=== PATIENT | female | born 1935 | race Caucasian/White ===

== ENCOUNTER 2017-03-29 11:08 | Emergency (ER) | payer MEDICARE, OTHER ==
[~2017-03-29] VITALS: Ht 170.2 cm; Wt 73.0 kg
[~2017-03-29 11:08] MED LIST: BIOT10004 PO; CALTCHW4 PO
[2017-03-29 11:14] VITALS: BP 168/76; PULSE 86; RESP 20; TEMP 97.7; O2SAT 96
[2017-03-29 11:26] VITALS: BP 153/74; PULSE 83; RESP 16; O2SAT 96
[2017-03-29] MEDS ORDERED: ACYC800T PO (11:51)
[2017-03-29] MEDS ORDERED: PERC5TAB12 PO (11:51)
--- NOTE | 2017-03-29 12:00 | PD ---
HPI Chief Complaint: Headache Time Seen by Provider: 11:22 Travel History International Travel<30 days: No Contact w/Intl Traveler<30days: No Traveled to known affect area: No History of Present Illness HPI This patient complains of right eye pain and irritation. She also has a rash on her upper forehead. She does not have any injury. Duration 3 days. Severity is moderate. No alleviating factors. Normal vision. Does not work contact lenses. She occasionally gets headache but nothing sustained. PFSH Past Medical History Arthritis: Yes (LEFT HAND/WRIST/KNEES) Asthma: No Autoimmune Disease: No Blood Disorders: Yes (ITP) Anxiety: No Depression: No Heart Rhythm Problems: No Cancer: Yes (ITP, leukemia) Cardiovascular Problems: No High Cholesterol: No Chemotherapy: Yes (FINISHED 2 YRS AGO) Chest Pain: No Congestive Heart Failure: No COPD: No Cerebrovascular Accident: No Diabetes: No Diminished Hearing: No Endocrine: No Gastrointestinal Disorders: No GERD: No Glaucoma: No Genitourinary: No Headaches: No Hepatitis: No Hiatal Hernia: No Heparin Induced Thrombocytopen: No Hypertension: No Immune Disorder: Yes (I.T.P) Kidney Stones: No Medical other: No Musculoskeletal: Yes Neurologic: Yes Psychiatric: No Reproductive: No Respiratory: No Migraines: No Radiation Therapy: No Renal Failure: No Seizures: No Sickle Cell Disease: No Sleep Apnea: No Thyroid Disease: No Ulcer: No Tetanus Vaccination: Unknown ?: Not Menopausal: Yes Past Surgical History Abdominal Surgery: Yes (SPLENECTOMY) AICD: No Arteriovenous Shunt: No Body Medical Devices: right browning cath Cardiac Surgery: No Ear Surgery: No Endocrine Surgery: No Eye Surgery: Yes (BOTH EYE CATARACT) Genitourinary Surgery: No Gynecologic Surgery: No Insulin Pump: No Joint Replacement: No Neurologic Surgery: No Oral Surgery: No Pacemaker: No Thoracic Surgery: No Other Surgery: Yes Social History Alcohol Use: No Tobacco Use: No Substance Use: No Allergies-Medications (Allergen,Severity, Reaction): Coded Allergies: No Known Allergies (Verified , 03/29/17) Reported Meds & Prescriptions Reported Meds & Active Scripts Active Percocet (Oxycodone-Acetaminophen) 5-325 mg Tab 1 Tab PO Q6H PRN Acyclovir 800 Mg Tab 800 Mg PO TID Review of Systems General / Constitutional: No: Fever HENT: Positive: Headaches Cardiovascular: No: Chest Pain or Discomfort Respiratory: No: Shortness of Breath Physical Exam Narrative NEUROLOGICAL: Awake and alert. Pupils are equal round and reactive. Motor and sensory grossly within normal limits. Five out of 5 muscle strength in all muscle groups. Normal speech. NECK: Symmetrical appearance, midline trachea. No mass or crepitus. Thyroid without enlargement, tenderness, or mass. SKIN: Focused skin assessment reveals a vesicular rash near the top of the forehead but only on the right side and does not cross the midline. Skin is warm and dry. Palpation shows no induration or nodules. Left sclerae clear Right sclera is clear I did a fluorescein exam of the right side and I do not see evidence of abrasion or corneal uptake or ulcer or foreign body There is certainly no dendritic pattern Data Data Last Documented VS Vital Signs Date Time Temp Pulse Resp B/P Pulse Ox O2 Delivery O2 Flow Rate FiO2 03/29/17 11:26 83 16 153/74 96 Room Air 03/29/17 11:14 97.7 MDM Medical Decision Making Medical Screen Exam Complete: Yes Emergency Medical Condition: Yes Medical Record Reviewed: Yes Differential Diagnosis Corneal abrasion, shingles, foreign body in the eye Narrative Course I have reviewed the patient's electronic medical record. Patient is neurologically intact and I don't feel she needs brain imaging Her primary concern is her eye irritation and her headache is intermittent Fluorescein shows no uptake and certainly no dendritic pattern to suggest shingles is involved in the eye No involvement of the face In fact the rash is only on a tiny little patch at the top of her forehead and I 'm not certain that is shingles but I'm going to give her acyclovir to cover the possibility I wrote her something for pain to use if needed She should follow-up with primary care and ophthalmology and return if she worsens Diagnosis Primary Impression: Irritation of right eye Additional Impression: Shingles outbreak Qualified Code: B02.9 - Herpes zoster without complication Additional Instructions: Follow-up with primary care and ophthalmology Return if you worsen The patient was warned about potential sedation for the medications they will receive on prescription. Med/Other Pt SpecificInfo: Prescription(s) given Scripts Oxycodone-Acetaminophen (Percocet)5-325 mg Tab1 Tab PO Q6H PRN (PAIN) #15 TAB Ref 0 Prov:Pierce Ding MD 03/29/17 Acyclovir 800 Mg [id number] Mg PO TID #21 TAB Ref 0 Prov:Pierce Ding MD 03/29/17 Disposition: 01 DISCHARGE HOME Condition: Stable Pierce Ding MD Mar 29, 2017 12:00
[2017-03-29] MEDS ORDERED: TURM500C3 PO (19:58)
[2017-03-29] MEDS ORDERED: BIOTCAP PO (19:58)
[2017-03-29] MEDS ORDERED: CALC1TAB87 PO (19:58)
[2017-03-29] MEDS ORDERED: ONCETAB7 PO (19:58)
[2017-03-29] MEDS ORDERED: ZOFR4TAB3 SL (23:08)
[2017-03-29] MEDS ORDERED: CIPR0.3S2 RIGHT EYE (23:27)
== END 2017-03-29 12:16 | disposition home or self-care (01) ==
LOC: PHED 11:08
DX: H57.8 Other specified disorders of eye and adnexa (principal); B02.9 Zoster without complications; Z87.39 Personal history of other diseases of the musculoskeletal system and connective tissue; Z86.2 Personal history of diseases of the blood and blood-forming organs and certain disorders involving the immune mechanism; Z86.69 Personal history of other diseases of the nervous system and sense organs
CPT/HCPCS: 99284

== ENCOUNTER 2017-03-29 18:21 | Emergency (ER) | payer MEDICARE, OTHER ==
[~2017-03-29 18:21] MED LIST changes: +ACYC800T PO; +PERC5TAB12 PO
[2017-03-29 19:50] VITALS: BP 156/68; PULSE 75; RESP 16; TEMP 98.3; O2SAT 97
[2017-03-29] MEDS ORDERED: BIOTCAP PO (19:58)
[2017-03-29] MEDS ORDERED: ONCETAB7 PO (19:58)
[2017-03-29] MEDS ORDERED: CALC1TAB87 PO (19:58)
[2017-03-29] MEDS ORDERED: TURM500C3 PO (19:58)
[2017-03-29] MEDS ORDERED: SODIUM CHLORIDE 0.9% FLUSH 10 ML FLUSH IVF PRN (20:00)
[2017-03-29] MEDS ORDERED: MORPHINE SULFATE 4 MG/ML INJ IV PUSH ONE (20:00)
[2017-03-29] MEDS ORDERED: ONDANSETRON HCL 4 MG/2 ML VIAL IVP ONE (20:00)
--- NOTE | 2017-03-29 20:19 | PD ---
HPI Chief Complaint: General Weakness Time Seen by Provider: 19:55 Travel History International Travel<30 days: No Contact w/Intl Traveler<30days: No Traveled to known affect area: No History of Present Illness HPI 82-year-old female presents to the emergency department by private transportation for complaint of persistent right eye pain for head pain headache generalized weakness and possible chills as felt tremulous earlier with diagnosis of shingles from earlier today at [facility]. Patient states that she did take prescription pain medicine, Percocet, without relief. Patient denies fever. Patient does not report sudden onset thunderclap or worst headache ever. Patient rates headache pain 6/10 in intensity. Patient rates pain 6/10 intensity. Patient also complains of some forehead and facial pain where she has a erythematous vesicular rash sparing the nose. Patient was seen yesterday in the emergency department and fluorescein staining revealed no evidence of dendritic changes or nail involvement. Patient has history of refractory ITP, acute myelogenous leukemia with complex cytogenetics as well as , LGL leukemia with neutropenia. Patient has completed all chemotherapy as of 2014. Patient is followed every 3 months by her oncologist Dr. Woodruff and her primary care provider Dr. Noel. [facility] Past Medical History Narrative Medical Refractory ITP, acute myelogenous leukemia with complex cytogenetics as well as , LGL leukemia with neutropenia. Patient has completed all chemotherapy as of 2014PE 2012-no anticoagulation due to thrombocytopenia splenectomy Browning catheter bilateral cataract surgery Arthritis: Yes (LEFT HAND/WRIST/KNEES) Asthma: No Autoimmune Disease: No Blood Disorders: Yes (ITP) Anxiety: No Depression: No Heart Rhythm Problems: No Cancer: Yes (ITP, leukemia) Cardiovascular Problems: No High Cholesterol: No Chemotherapy: Yes (FINISHED 2 YRS AGO) Chest Pain: No Congestive Heart Failure: No COPD: No Cerebrovascular Accident: No Diabetes: No Diminished Hearing: No Endocrine: No Gastrointestinal Disorders: No GERD: No Glaucoma: No Genitourinary: No Headaches: No Hepatitis: No Hiatal Hernia: No Heparin Induced Thrombocytopen: No Hypertension: No Immune Disorder: Yes (I.T.P) Kidney Stones: No Musculoskeletal: Yes Neurologic: Yes Psychiatric: No Reproductive: No Respiratory: No Migraines: No Radiation Therapy: No Renal Failure: No Seizures: No Sickle Cell Disease: No Sleep Apnea: No Thyroid Disease: No Ulcer: No Influenza Vaccination: Yes Menopausal: Yes : 0 Past Surgical History Abdominal Surgery: Yes (SPLENECTOMY) AICD: No Arteriovenous Shunt: No Body Medical Devices: right browning cath Cardiac Surgery: No Ear Surgery: No Endocrine Surgery: No Eye Surgery: Yes (BOTH EYE CATARACT) Genitourinary Surgery: No Gynecologic Surgery: No Insulin Pump: No Joint Replacement: No Neurologic Surgery: No Oral Surgery: No Pacemaker: No Thoracic Surgery: No Other Surgery: Yes (basal cell removed from nose) Social History Alcohol Use: No Tobacco Use: No Substance Use: No Allergies-Medications (Allergen,Severity, Reaction): Coded Allergies: No Known Allergies (Verified , 03/29/17) Reported Meds & Prescriptions Reported Meds & Active Scripts Active Ciprofloxacin Opth Drops (Ciprofloxacin HCl) 0.3% Soln 2 Drop RIGHT EYE Q4H while awake x 5 days. Zofran Odt (Ondansetron Odt) 4 Mg Tab 4 Mg SL Q6HR PRN Percocet (Oxycodone-Acetaminophen) 5-325 mg Tab 1 Tab PO Q6H PRN Acyclovir 800 Mg Tab 800 Mg PO TID Reported Turmeric (Turmeric (Curcuma Longa)) 500 Mg Cap 1 Cap PO DAILY Once Daily (Multivitamin) 1 Each Tablet 1 Tab PO DAILY Calcium 600 with Vitamin D (Calcium Carbonate-Cholecalciferol) 600-400 mg-Unit Tab 1 Tab PO BID Biotin 5 Mg Cap 5 Mg PO DAILY Review of Systems Except as stated in HPI: all other systems reviewed are Neg General / Constitutional: Positive: Chills, No: Fever Eyes: Positive: Pain, No: Diploplia, Blurred Vision, Photophobia, Drainage, Visual changes HENT: Positive: Headaches, No: Congestion Cardiovascular: No: Chest Pain or Discomfort Respiratory: No: Shortness of Breath Gastrointestinal: Positive: Nausea, No: Vomiting, Abdominal Pain Genitourinary: No: Dysuria, Flank Pain Musculoskeletal: No: Myalgias, Arthralgias Skin: Positive Rash (right foreheadright upper eyelid) Neurologic: Positive: Weakness, Headache, No: Dizziness, Syncope, Focal Abnormalities, Coordination Problem, Change in Mentation Psychiatric: No: Anxiety Endocrine: No: Heat Intolerance Hematologic/Lymphatic: No: Easy Bruising Physical Exam Narrative GENERAL: Well-developed well-nourished elderly female in no acute distress no respiratory distress. Triage vital signs within stable rangeT: 90.3F, HR: 75, RR: 16 nonlabored, BP: 156/68; O2sat RA: 97% SKIN: Warm and dry. Right forehead extending to the right upper eyelid sparing the nose erythematous based vesicular rash. HEAD: Atraumatic. Normocephalic. EYES: Pupils equal and round. No scleral icterus. Mild injection, no drainage. Extraocular muscles intact. Fluorescein stain: positive uptake at the 9 o' clock position with mild dendritic changes noted; Visual acuities right eye 20/ 20, left eye 20/20, both eyes 20/20 without corrective lenses (wears bifocal eyeglasses) ENT: No nasal bleeding or discharge. Mucous membranes pink and moist. NECK: Trachea midline. No JVD. CARDIOVASCULAR: Regular rate and rhythm. RESPIRATORY: No accessory muscle use. Clear to auscultation. Breath sounds equal bilaterally. GASTROINTESTINAL: Abdomen soft, non-tender, nondistended. Hepatic and splenic margins not palpable. MUSCULOSKELETAL: Extremities without clubbing, cyanosis, or edema. No obvious deformities. NEUROLOGICAL: Awake and alert. No obvious cranial nerve deficits. Motor grossly within normal limits. Five out of 5 muscle strength in the arms and legs. Normal speech. PSYCHIATRIC: Appropriate mood and affect; insight and judgment normal. Data Data Last Documented VS Vital Signs Date Time Temp Pulse Resp B/P Pulse Ox O2 Delivery O2 Flow Rate FiO2 03/29/17 19:50 98.3 75 16 156/68 97 Room Air Orders Electrocardiogram (03/29/17 19:55) Basic Metabolic Panel (Bmp) (03/29/17 19:55) Complete Blood Count With Diff (03/29/17 19:55) Magnesium (Mg) (03/29/17 19:55) Troponin I (03/29/17 19:55) Act Partial Throm Time (Ptt) (03/29/17 19:55) Prothrombin Time / Inr (Pt) (03/29/17 19:55) Urinalysis - C+S If Indicated (03/29/17 19:55) Ct Brain W/O Iv Contrast(Rout) (03/29/17 19:55) Blood Glucose (03/29/17 19:55) Ecg Monitoring (03/29/17 19:55) Iv Access Insert/Monitor (03/29/17 19:55) Oximetry (03/29/17 19:55) Ondansetron Inj (Zofran Inj) (03/29/17 20:00) Sodium Chloride 0.9% Flush (Ns Flush) (03/29/17 20:00) Morphine Inj (Morphine Inj) (03/29/17 20:00) Blood Culture (03/29/17 20:45) Lactic Acid (03/29/17 20:45) Acyclovir (Zovirax) (03/29/17 22:30) Labs Laboratory Tests Test 03/29/17 03/29/17 03/29/17 20:05 20:08 21:20 Urine Color YELLOW Urine Turbidity CLEAR Urine pH 7.0 Urine Specific [place] 1.024 Urine Protein TRACE mg/dL Urine Glucose (UA) NEG mg/dL Urine Ketones 40 mg/dL Urine Occult Blood NEG Urine Nitrite NEG Urine Bilirubin NEG Urine Urobilinogen LESS THAN 2.0 MG/DL Urine Leukocyte Esterase NEG Urine WBC LESS THAN 1 /hpf Urine Hyaline Casts 6 /lpf Urine Mucus FEW /lpf Microscopic Urinalysis Comment CULT NOT INDICATED White Blood Count 7.0 TH/MM3 Red Blood Count 4.07 MIL/MM3 Hemoglobin 13.5 GM/DL Hematocrit 39.5 % Mean Corpuscular Volume 97.2 FL Mean Corpuscular Hemoglobin 33.3 PG Mean Corpuscular Hemoglobin 34.2 % Concent Red Cell Distribution Width 13.3 % Platelet Count 195 TH/MM3 Mean Platelet Volume 8.6 FL Neutrophils (%) (Auto) 51.5 % Lymphocytes (%) (Auto) 39.4 % Monocytes (%) (Auto) 8.4 % Eosinophils (%) (Auto) 0.1 % Basophils (%) (Auto) 0.6 % Neutrophils # (Auto) 3.6 TH/MM3 Lymphocytes # (Auto) 2.7 TH/MM3 Monocytes # (Auto) 0.6 TH/MM3 Eosinophils # (Auto) 0.0 TH/MM3 Basophils # (Auto) 0.0 TH/MM3 CBC Comment DIFF FINAL Differential Comment Prothrombin Time 10.8 SEC Prothromb Time International 1.0 RATIO Ratio Activated Partial 24.7 SEC Thromboplast Time Sodium Level 137 MEQ/L Potassium Level 3.9 MEQ/L Chloride Level 102 MEQ/L Carbon Dioxide Level 24.7 MEQ/L Anion Gap 10 MEQ/L Blood Urea Nitrogen 14 MG/DL Creatinine 0.86 MG/DL Estimat Glomerular Filtration 63 ML/MIN Rate Random Glucose 128 MG/DL Calcium Level 9.0 MG/DL Magnesium Level 2.0 MG/DL Troponin I LESS THAN 0.02 NG/ML Lactic Acid Level 1.1 mmol/L MDM Medical Decision Making Medical Screen Exam Complete: Yes Emergency Medical Condition: Yes Medical Record Reviewed: Yes Interpretation(s) EKG: Normal sinus rhythm rate [address] elevation injury pattern or ectopy Lactic acid: 1.1, not elevated Troponin I: Less than 0.02, not elevated Last Impressions Head CT 03/29/171954 Signed Impressions: Service Date/Time: Wednesday, March 29, 2017 20:12 - CONCLUSION: 1. No acute findings. 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 Ryan Alanis MD CBC & BMP Diagram 03/29/17 20:08 Vital Signs Date Time Temp Pulse Resp B/P Pulse Ox O2 Delivery O2 Flow Rate FiO2 03/29/17 19:50 98.3 75 16 156/68 97 Room Air Differential Diagnosis Herpes zoster ophthalmicus/keratitis, cephalgia, sepsis, pancytopenia Narrative Course Visual acuities performed right eye 20/20 left eye 20/20 both eyes 20/20 (w/o bifocals) Primary care provider Dr. Noel, oncologist Dr. Viera, cognos bi administrator Dr. Prado At 8:44 PM patient now relates that her tremulousness earlier was actually a shaking chill therefore will add lactic acid and blood cultures to current lab values. 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 Prado regarding close follow-up. Patient not voicing any complaint of eye irritation at this time. Patient is aware some mild fluorescein was noted on exam concerning for a involvement of the herpes virus. Patient with family at bedside is aware of normal range lab values imaging studies and EKG; patient is asymptomatic at this time in the emergency department; patient also aware that I have discussed her eye concerns with her cognos bi administrator Dr. Prado's partner who recommends she start antibiotic eyedrop coverage as well as continue her antiviral medications and as needed pain medicine and is to call the office on Saturday morning if she notes any vision change otherwise will be seen in the office on Saturday by Dr. Prado. Physician Communication Physician Communication call placed to Dr Prado ---discussed with covering MD Dr Corona --rec coverage with cipro eye drops and to call office communication manager over the weekend if any change in vision Diagnosis Primary Impression: Zoster keratitis Referrals: Castro Prado MD 2 days Plant Floor [employer]ation Manager 2 days SATURDAY Patient Instructions: Narcotic given in the ED, General Instructions Additional Instructions: Continue current medications as presently prescribed Follow-up with Dr. Prado on Saturday call office in a.m. to schedule follow-up appointment; call partner, Dr Corona, communication manager # [phone] if any vision changes to be seen in the office on Saturday Return to the emergency department for any concerns or change in conditions or intolerance of medication Monitor temperature every 4 hours and take as tolerated acetaminophen/Tylenol for fever 100.4F or greater May take Zofran as prescribed as needed for nausea and/or vomiting Use prescription eyedrops Cipro as prescribed until evaluated by ophthalmology. Med/Other Pt SpecificInfo: Prescription(s) given Scripts Ciprofloxacin Opth Drops 0.3% Soln2 Drop RIGHT EYE Q4H #1 BOTTLE Ref 0 while awake x 5 days. Prov:Sandra Leyva MD 03/29/17 Ondansetron Odt (Zofran Odt)4 Mg Tab4 Mg SL Q6HR PRN (Nausea/Vomiting) #10 TAB Ref 0 Prov:Sandra Leyva MD 03/29/17 Disposition: 01 DISCHARGE HOME Condition: Stable Sandra Leyva MD Mar 29, 2017 20:19
[2017-03-29 20:21] LABS: AUTOMATED NEUTROPHIL # 3.6 TH/MM3 (1.8-7.7); BASOPHIL % 0.6 % (0.0-2.0); EOSINOPHIL % 0.1 % (0.0-4.0); HEMATOCRIT 39.5 % (35.0-46.0); HEMO FLAGS DIFF FINAL; LYMPH % 39.4 % (9.0-44.0); LYMPHOCYTE # 2.7 TH/MM3 (1.0-4.8); MEAN CELL VOLUME 97.2 FL (80.0-100.0); MEAN CORPUSCULAR HEMOGLOBIN 33.3 PG (27.0-34.0); MEAN CORPUSCULAR HGB CONC 34.2 % (32.0-36.0); MONO % 8.4 % (0.0-8.0); NEUT % 51.5 % (16.0-70.0); PLATELET COUNT 195 TH/MM3 (150-450); RED BLOOD COUNT 4.07 MIL/MM3 (4.00-5.30); RED CELL DISTRIBUTION WIDTH 13.3 % (11.6-17.2)
--- NOTE | 2017-03-29 20:23 | RADRPT ---
EXAM DATE/TIME: 03/29/2017 20:12 [facility] COMPARISON: No previous studies available for comparison. INDICATIONS : Headache, shaky, pain behind eyes. RADIATION DOSE: 30.65 CTDIvol (mGy) MEDICAL HISTORY : SURGICAL HISTORY : Leukemia, ITP ENCOUNTER: Initial ACUITY: 1 day PAIN SCALE: 7/10 LOCATION: Bilateral cranial TECHNIQUE: Multiple contiguous axial images were obtained of the head. Using automated exposure control and adj ustment of the mA and/or kV according to patient size, radiation dose was kept as low as reasonably a chievable to obtain optimal diagnostic quality images. DICOM format image data is available electro nically for review and comparison. FINDINGS: CEREBRUM: The ventricles are normal for age. No evidence of midline shift, mass lesion, hemorrhage or acute in farction. Remote lacunar infarct right basal ganglia unchanged from 2013. No extra-axial fluid colle ctions are seen. POSTERIOR FOSSA: The cerebellum and brainstem are intact. The 4th ventricle is midline. The cerebellopontine angle i s unremarkable. EXTRACRANIAL: The visualized portion of the orbits is intact. SKULL: The calvaria is intact. No evidence of skull fracture. CONCLUSION: 1. No acute findings. 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 Ryan Alanis MD on March 29, 2017 at 20:20 Board Certified Radiologist. This report was verified electronically.
[2017-03-29 20:44] LABS: ANION GAP 10 MEQ/L (5-15); BICARBONATE 24.7 MEQ/L (21.0-32.0); BLOOD UREA NITROGEN 14 MG/DL (7-18); CHLORIDE 102 MEQ/L (98-107); GLOMERULAR FILTRATION RATE 63 ML/MIN (>89); POTASSIUM 3.9 MEQ/L (3.5-5.1); SODIUM (NA) 137 MEQ/L (136-145)
[2017-03-29 20:57] LABS: APTT (PATIENT) 24.7 SEC (24.3-30.1); PROTHROMBIN TIME - PATIENT 10.8 SEC (9.8-11.6)
[2017-03-29 21:39] LABS: BLOOD, URINE NEG (NEG); COMMENT (UR) CULT NOT INDICATED; CULTURE IF INDICATED CULT NOT INDICATED; GLUCOSE,URINE NEG (NEG); HYALINE CAST, URINE 6 /lpf (RARE); KETONE, URINE 40 mg/dL (NEG); MUCUS URINE FEW /lpf (OCC); NITRITE,URINE NEG (NEG); URINE COLOR YELLOW (YELLW/STRAW)
[2017-03-29] MEDS ORDERED: ACYCLOVIR 800 MG TAB PO ONE (22:30)
[2017-03-29] MEDS ORDERED: ZOFR4TAB3 SL (23:08)
[2017-03-29] MEDS ORDERED: CIPR0.3S2 RIGHT EYE (23:27)
--- NOTE | 2017-03-30 19:30 | EKG ---
Date Performed: 03/29/2017 Time Performed: 20:22:37 PTAGE: 82 years EKG: Sinus rhythm NORMAL ECG Compared to PREVIOUS TRACING PVCs are no longer seen. PREVIOUS TRACIN01/21/2013 17.53 DOCTOR: Phoenix Rosario Interpretating Date/Time 03/30/2017 19:28:46
== END 2017-03-30 00:34 | disposition home or self-care (01) ==
LOC: NEPC 18:21
DX: B02.33 Zoster keratitis (principal); R51 Headache; R53.1 Weakness; R21 Rash and other nonspecific skin eruption; Z79.899 Other long term (current) drug therapy; Z86.2 Personal history of diseases of the blood and blood-forming organs and certain disorders involving the immune mechanism; Z85.6 Personal history of leukemia; Z87.39 Personal history of other diseases of the musculoskeletal system and connective tissue; Z86.69 Personal history of other diseases of the nervous system and sense organs
CPT/HCPCS: 70450; 80048; 81001; 83605; 83735; 84484; 85025; 85610; 85730; 87040; 93005; 96374; 96375; 99285; J2270; J2405

== ENCOUNTER → 2017-09-07 | Outpatient (CLI) | payer MEDICARE, OTHER ==
[~2017-09-07] MED LIST changes: -BIOT10004 PO; +BIOTCAP PO; +CALC1TAB87 PO; -CALTCHW4 PO; +CIPR0.3S2 RIGHT EYE; +ONCETAB7 PO; +TURM500C3 PO; +ZOFR4TAB3 SL
[2017-09-07 15:46] LABS: AUTOMATED NEUTROPHIL # 7.9 TH/MM3 (1.8-7.7); BASOPHIL % 0.1 % (0.0-2.0); HEMATOCRIT 38.3 % (35.0-46.0); HEMOGLOBIN 12.8 GM/DL (11.6-15.3); LYMPH % 27.2 % (9.0-44.0); LYMPHOCYTE # 3.2 TH/MM3 (1.0-4.8); MEAN CELL VOLUME 98.4 FL (80.0-100.0); MEAN CORPUSCULAR HGB CONC 33.5 % (32.0-36.0); MEAN PLATELET VOLUME 9.3 FL (7.0-11.0); MONO % 5.3 % (0.0-8.0); MONOCYTE # 0.6 TH/MM3 (0-0.9); NEUT % 67.4 % (16.0-70.0); RED BLOOD COUNT 3.89 MIL/MM3 (4.00-5.30); RED CELL DISTRIBUTION WIDTH 13.5 % (11.6-17.2); WHITE BLOOD COUNT 11.7 TH/MM3 (4.0-11.0)
[2017-09-07 16:09] LABS: PLATELET COUNT 14 TH/MM3 (150-450)
== END ==
LOC: HLAB 15:08
PROVIDERS: ATTEND Internal Medicine Hematology & Oncology
DX: D69.3 Immune thrombocytopenic purpura (principal); D50.9 Iron deficiency anemia, unspecified
CPT/HCPCS: 36415; 85025